=== PATIENT | male | born 1945 | race Caucasian/White ===

== ENCOUNTER 2018-03-26 14:11 | Emergency (ER) | payer MEDICARE, OTHER ==
[~2018-03-26] VITALS: Ht 172.7 cm; Wt 93.0 kg
[2018-03-26] MEDS ORDERED: TR025C15 TP (14:36)
[2018-03-26] MEDS ORDERED: LAMO100T PO (14:36)
[2018-03-26] MEDS ORDERED: ASPI-586 PO (14:36)
[2018-03-26] MEDS ORDERED: OXYB10TA PO (14:36)
[2018-03-26] MEDS ORDERED: LISI10TA2 PO (14:36)
--- NOTE | 2018-03-26 15:04 | Diagnostic Imaging Report ---
PATIENT HISTORY: Left knee pain and swelling after fall. TECHNIQUE: Three views of the left knee. COMPARISON: None. FINDINGS: No acute fracture or dislocation is seen in the left knee. There are mild tricompartmental degenerative changes. A moderate left knee joint effusion is present. IMPRESSION: Mild tricompartmental degenerative changes in the left knee with a moderate left knee joint effusion. No acute fracture is seen. Dictated by: Dictated on workstation # [id number]
[2018-03-26] MEDS ORDERED: BUPIVACAINE 0.5% 30 ML (SENSORCAINE) VIAL INJ ONE (15:15)
[2018-03-26] MEDS ORDERED: DEXAMETHASONE 10 MG/ML (DECADRON) 1 ML VIAL INJ ONE (15:15)
--- NOTE | 2018-03-26 16:19 | Diagnostic Imaging Report ---
Procedure: US left lower extremity venous. Technique: Multiple real-time grayscale images were obtained over the left lower extremity in various projections. Additional duplex Doppler and color Doppler images were also obtained. Indication: Left knee pain and swelling. Comparison: None. Technique: The left lower extremity deep venous system was interrogated from the common femoral vein through the popliteal vein. These images were assessed for grayscale appearance, color and spectral Doppler blood flow, compression, and augmentation. Findings: There is no evidence of intraluminal filling defect. Normal compression and augmentation is noted throughout. Soft tissues are unremarkable. Impression: No sonographic evidence of deep venous thrombosis in the left lower extremity. Dictated by: Dictated on workstation # [id number]
--- NOTE | 2018-03-26 16:37 | ED Lower Extremity ---
General Chief Complaint: Lower Extremity Stated Complaint: L KNEE SWELLING Nursing Triage Note: pt presents to ed with complaints of l knee pain since last tuesday after being down. pt reports l knee swelling as well. Nursing Sepsis Screen: No Definite Risk Source: patient Exam Limitations: no limitations History of Present Illness Date Seen by Provider: Mar 26, 2018 Time Seen by Provider: 14:35 Initial Comments This 73-year-old gentleman presents to the emergency room with complaints of pain and swelling in the left knee as well as pain in the left calf that started in March 22 and has been gradually worsening since onset. He is not taking any medications for the pain. He states the pain worsened after working in his 's flower bed. He denies any injury or any prior problems with this knee. He also notes that his varicose veins in that leg have become much more dilated over the past few days. He denies any fever or other problems. Allergies and Home Medications Allergies Coded Allergies: No Known Drug Allergies (Unverified , 03/26/18) Home Medications Lamotrigine 100 Mg Tablet, 100 MG PO BID, (Reported) Lisinopril 10 Mg Tablet, 10 MG PO DAILY, (Reported) Patient Home Medication List Home Medication List Reviewed: Yes Constitutional: no symptoms reported EENTM: no symptoms reported Respiratory: no symptoms reported Cardiovascular: no symptoms reported Gastrointestinal: no symptoms reported Genitourinary: no symptoms reported Musculoskeletal: see HPI Skin: no symptoms reported Psychiatric/Neurological: No Symptoms Reported Past Oixdokh-Yeubhj-Xhnrsr Hx Patient Social History Alcohol Use: Denies Use Recreational Drug Use: No Smoking Status: Former Smoker Former Smoker, Quit: Mar 30, 1976 Recent Foreign Travel: No Contact w/Someone Who Travel: No Recent Infectious Disease Expo: No Recent Hopitalizations: No Physical Abuse: No Sexual Abuse: No Mistreated: No Fear: No Seasonal Allergies Seasonal Allergies: No Past Medical History Surgeries: Yes (fistula repair) Appendectomy, Tonsillectomy Respiratory: No Cardiac: Yes Hypertension Neurological: Yes Seizure Disorder Genitourinary: Yes Prostate Problems Gastrointestinal: No Musculoskeletal: No Endocrine: No HEENT: No Cancer: No Did You Recieve Any Treatments: No Psychosocial: No Nursing Suicide Risk Score: 0 Physical Exam Vital Signs Vital Signs - First Documented 03/26/18 14:24 Temp 98.2 Pulse 80 Resp 18 B/P (MAP) 148/76 (100) Pulse Ox 96 Capillary Refill : Less Than 3 Seconds General Appearance: WD/WN, no apparent distress Cardiovascular: regular rate, rhythm Respiratory: normal breath sounds, no respiratory distress Legs: right leg non-tender, right leg normal inspection, right leg normal range of motion; bilateral leg no evidence of injury; left leg soft tissue tenderness, left leg swelling, left leg other (positive Grzegorz) Knees: right knee non-tender, right knee normal inspection, right knee normal range of motion; bilateral knee no evidence of injury; left knee joint effusion , left knee pain, left knee soft tissue tenderness, left knee swelling Ankles: bilateral ankle non-tender, bilateral ankle normal inspection, bilateral ankle normal range of motion, bilateral ankle no evidence of injury Feet: bilateral foot normal inspection Neurologic/Tendon: normal sensation, normal motor functions Neurologic/Psychiatric: gl accountant II-XII nml as tested, no motor/sensory deficits, alert, normal mood/affect, oriented x 3 Skin: normal color, warm/dry Procedures/Interventions Progress Informed consent was verbally obtained from the patient for joint aspiration and injection of the left knee. Knee was marked and cleaned with alcohol wipes. Local anesthesia was performed by injection of 1-2 mL of lidocaine beneath the skin and in the subcutaneous tissue. The knee was then prepped with Betadine. Under sterile technique synovial fluid was aspirated from a superior lateral approach using an 18-gauge needle. 70 mL of clear yellow synovial fluid was aspirated. Fluid was sent to the lab for crystal analysis. The same needle was left in place and a mixture of Decadron 8 mg and 2 mL Marcaine 0.5 percent was injected through the same needle. Patient tolerated the procedure well and had nearly immediate relief of symptoms. Progress/Results/Core Measures Results/Orders Lab Results Laboratory Tests Test 03/26/18 15:49 Range/Units Body Fluid Crystals NOT SEEN My Orders Orders - DIANA ROBERTS MD Knee, Left, 3 Views (03/26/18 14:43) Us Venous Lower Ext Lt (03/26/18 14:43) Dexamethasone Injection (Decadron Inject (03/26/18 15:15) Bupivacaine 0.5% Injection (Sensorcaine (03/26/18 15:15) Crystals,Body Fluid (03/26/18 15:50) Crystals,Body Fluid (03/26/18 16:11) Medications Given in ED Current Medications Medications Dose Ordered Sig/Delvin Route Start Time Stop Time Status Last Admin Dose Admin Bupivacaine HCl 30 ml ONCE ONCE INJ 03/26/18 15:15 03/26/18 15:22 DC 03/26/18 15:45 30 ML Dexamethasone Sodium Phosphate 8 mg ONCE ONCE INJ 03/26/18 15:15 03/26/18 15:22 DC 03/26/18 15:45 8 MG Vital Signs/I&O 03/26/18 14:24 Temp 98.2 Pulse 80 Resp 18 B/P (MAP) 148/76 (100) Pulse Ox 96 Blood Pressure Mean: 100 Progress Progress Note : Progress Note Patient had a significant joint effusion of the left knee. There was no heat or erythema to suggest infection or inflammation. The involved area was tender to touch and range of motion was limited secondary to pain. Ultrasound was negative for DVT. Risks and benefits of joint aspiration and injection were discussed with the patient which included risks of pain, bleeding, and infection. Benefits suggested were immediate and possibly prolonged improvement of pain as well as aspiration of fluid causing pressure. Patient requested the aspiration and injection which was performed successfully using sterile technique. See procedure note. Patient's pain was much improved as well as range of motion at the time of discharge. X-ray demonstrated mild arthritic changes. Diagnostic Imaging Diagonstic Imaging: Xray Plain Films/CT/US/NM/MRI: knee Comments X-ray viewed by me and report reviewed. See report below: NAME: JANAK LUCAS [facility] REC#: [id number] PT STATUS: REG ER : 1945 PHYSICIAN: DIANA ROBERTS MD ADMIT DATE: 03/26/18/ER Signed Date of Exam: 03/26/18 KNEE, LEFT, 3 VIEWS PATIENT HISTORY: Left knee pain and swelling after fall. TECHNIQUE: Three views of the left knee. COMPARISON: None. FINDINGS: No acute fracture or dislocation is seen in the left knee. There are mild tricompartmental degenerative changes. A moderate left knee joint effusion is present. IMPRESSION: Mild tricompartmental degenerative changes in the left knee with a moderate left knee joint effusion. No acute fracture is seen. Dictated by: Dictated on workstation # [id number] Dict: 03/26/18 1502 Trans: 03/26/18 1511 Interpreted by: ЮЛИЯ MAYNARD MD Electronically signed by: ЮЛИЯ MAYNARD MD 03/26/18 1511 Diagonstic Imaging: Ultrasound Plain Films/CT/US/NM/MRI: leg Comments Venous Doppler of the left leg report reviewed. See report below: NAME: JANAK LUCAS [facility] REC#: [id number] PT STATUS: REG ER : 1945 PHYSICIAN: DIANA ROBERTS MD ADMIT DATE: 03/26/18/ER Signed Date of Exam: 03/26/18 US VENOUS LOWER EXT LT Procedure: US left lower extremity venous. Technique: Multiple real-time grayscale images were obtained over the left lower extremity in various projections. Additional duplex Doppler and color Doppler images were also obtained. Indication: Left knee pain and swelling. Comparison: None. Technique: The left lower extremity deep venous system was interrogated from the common femoral vein through the popliteal vein. These images were assessed for grayscale appearance, color and spectral Doppler blood flow, compression, and augmentation. Findings: There is no evidence of intraluminal filling defect. Normal compression and augmentation is noted throughout. Soft tissues are unremarkable. Impression: No sonographic evidence of deep venous thrombosis in the left lower extremity. Dictated by: Dictated on workstation # [id number] Dict: 03/26/18 1615 Trans: 03/26/18 1639 Interpreted by: DANE WETZEL MD Electronically signed by: DANE WETZEL MD 03/26/18 1639 Departure Impression Primary Impression: Arthritis of left knee Additional Impression: Effusion, left knee Disposition: 01 HOME, SELF-CARE Condition: Improved Departure-Patient Inst. Decision time for Depature: 16:00 Referrals: JOSUE VALENCIA MD (PCP/Family) Primary Care Physician Patient Instructions: Osteoarthritis Add. Discharge Instructions: For pain take ibuprofen up to 600 mg every 6 hours as needed. You may also take Tylenol (acetaminophen) (up to 1000 mg every 6 hours as needed. Elevation and icing in 20 minute intervals may also help with pain and swelling. You may try compressive wrappings such as an Dandre bandage or soft knee brace. If symptoms return, follow-up with Dr. Valencia. Return to care if you develop heat, redness, or more severe pain of the knee or fevers over 100. The fluid from your knee was sent to the lab to evaluate for crystals. Please follow-up with Dr. Valencia for the results of this test. All discharge instructions reviewed with patient and/or family. Voiced understanding. DIANA ROBERTS MD Mar 26, 2018 16:37
[2018-03-26 16:43] VITALS: BP 142/81
== END 2018-03-26 16:43 | disposition home or self-care (01) ==
LOC: ER 14:13
DX: M17.12 Unilateral primary osteoarthritis, left knee (principal); I10 Essential (primary) hypertension; G40.909 Epilepsy, unspecified, not intractable, without status epilepticus; Z87.891 Personal history of nicotine dependence; Z90.89 Acquired absence of other organs
CPT/HCPCS: 20610; 73562; 89060; 96372

== ENCOUNTER 2018-11-28 14:24 | Outpatient (CLI) | payer MEDICARE ==
[~2018-11-28] VITALS: Ht 172.7 cm; Wt 95.3 kg
== END 2018-11-28 14:50 | disposition home or self-care (01) ==
LOC: PREOP 14:24
PROVIDERS: ATTEND Surgery
DX: Z01.818 Encounter for other preprocedural examination (principal)

== ENCOUNTER 2018-12-04 07:20 | Day surgery (SDC) | payer MEDICARE ==
[~2018-12-04] VITALS: Ht 172.7 cm; Wt 95.3 kg
[~2018-12-04 07:20] MED LIST: ASPI-586 PO; LAMO100T PO; LISI10TA2 PO; OMEG100032 PO; OXYB10TA PO; TR025C15 TP
[2018-12-04] MEDS ORDERED: NS IV 500 ML 500 ML IV PRN (07:33)
[2018-12-04] MEDS ORDERED: NS IV 500 ML 500 ML ONE (07:40)
[2018-12-04] MEDS ORDERED: MIDAZOLAM 2 MG/2 ML (VERSED) VIAL IVP ONE (07:45)
[2018-12-04] MEDS ORDERED: fentaNYL INJECTION 100 MCG/2 ML AMP IVP ONE (07:45)
[2018-12-04 07:52] VITALS: BP 157/83
[2018-12-04] MEDS ORDERED: fentaNYL INJECTION 100 MCG/2 ML AMP ONE (08:29)
[2018-12-04] MEDS ORDERED: MIDAZOLAM 2 MG/2 ML (VERSED) VIAL ONE ×4 (08:29→08:30)
--- NOTE | 2018-12-04 09:18 | History & Physicial ---
History of Present Illness History of Present Illness Reason for visit/HPI to undergo screening colonoscopy. He reports a family history of polyps in his father. Date of Admission 12/04/28 Date Seen by a Provider: Dec 04, 2018 Time Seen by a Provider: 08:15 I consulted on this patient on 12/04/18 09:17 Attending Physician Shreya Meredith MD Admitting Physician Roger Ca MD Consult Allergies and Home Medications Allergies Coded Allergies: Sulfa (Sulfonamide Antibiotics) (Verified Allergy, Unknown, 11/28/18) Home Medications Aspirin 81 Mg Tablet.dr, 81 MG PO DAILY, (Reported) Lamotrigine 100 Mg Tablet, 100 MG PO BID, (Reported) Lisinopril 10 Mg Tablet, 10 MG PO DAILY, (Reported) [place]-3/Dha/Epa/Fish Oil 1,000 Mg Capsule, 1,000 MG PO DAILY, (Reported) Oxybutynin Chloride 10 Mg Tab.er.24, 10 MG PO DAILY, (Reported) Patient Home Medication List Home Medication List Reviewed: Yes Past Jyfuajt-Sxbtlv-Wuoynn Hx Patient Social History Marrital Status: Employed/Student: retired Alcohol Use: Denies Use Recreational Drug Use: No Smoking Status: Former Smoker Former Smoker, Quit: Mar 30, 1976 Type Used: Cigarettes 2nd Hand Smoke Exposure: No Recent Foreign Travel: No Contact w/other who traveled: No Recent Hopitalizations: No Recent Infectious Disease Expo: No Immunizations Up To Date Tetanus Booster (TDap): Unknown Date of Pneumonia Vaccine: Jul 10, 2018 Date of Influenza Vaccine: Jul 10, 2018 Seasonal Allergies Seasonal Allergies: Yes Surgeries Yes (fistula repair) Appendectomy, Tonsillectomy Respiratory No Currently Using CPAP: No Currently Using BIPAP: No Cardiovascular Yes Hypertension Neurological Yes (had one seizure about 15 yrs ago no lasting issues) Seizure Disorder Reproductive System Sexually Transmitted Disease: No HIV/AIDS: No Genitourinary Yes Prostate Problems Gastrointestinal No Musculoskeletal No Endocrine History of Endocrine Disorders: No HEENT History of HEENT Disorders: No Loss of Vision: Bilateral Hearing Impairment: Denies Cancer Yes Skin Did You Recieve Any Treatments: No Psychosocial History of Psychiatric Problem: No Integumentary History of Skin or Integumenta: No Blood Transfusions History of Blood Disorders: No Review of Systems Constitutional: no symptoms reported EENTM: no symptoms reported Respiratory: no symptoms reported Cardiovascular: no symptoms reported Gastrointestinal: no symptoms reported Genitourinary: no symptoms reported Musculoskeletal: no symptoms reported Skin: no symptoms reported Psychiatric/Neurological: No Symptoms Reported Physical Exam Vital Signs Vital Signs - First Documented 12/04/18 07:52 Temp 98.2 Pulse 74 Resp 18 B/P (MAP) 157/83 (107) Pulse Ox 96 O2 Delivery Room Air Capillary Refill : Height, Weight, BMI Height: 5'8.00" Weight: 210lbs. 0.0oz. 95.916064kp; 31.9 BMI Method:Stated General Appearance: No Apparent Distress Neck: Normal Inspection Respiratory: Lungs Clear Cardiovascular: Regular Rate, Rhythm Gastrointestinal: Non Tender, Soft Rectal: Deferred Extremity: Normal Inspection Neurologic/Psychiatric: Alert, Oriented x3 Skin: Warm/Dry Assessment/Plan Assessment and Plan gentleman to undergo screening colonoscopy. Discussed in detail. Admission Diagnosis Admission Status: Other (Outpt Proc) SHREYA MEREDITH MD Dec 04, 2018 09:18
--- NOTE | 2018-12-04 09:19 | Conscious Sedation/ASA ---
Conscious Sedation Pre-Proced Time 08:16 ASA Score 2 For ASA 3 and 4: Consider anesthesia and medical clearance. Also, for patients with a history of failed moderate sedation consider anesthesia. Airway Lungs Heart ASA score ASA 1: a normal healthy patient ASA 2: a patient with a mild systemic disease (mid diabetes, controlled hypertension, obesity ASA 3: a patient with a severe systemic disease that limits activity (angina , COPD, prior Myocardial infarction) ASA 4: a patient with an incapacitating disease that is a constant threat to life (CHF, renal failure) ASA 5: a moribund patient not expected to survive 24 hrs. (ruptured aneurysm) ASA 6: a declared brain- patient whose organs are being harvested. For emergent operations, add the letter E after the classification Mallampati Classification Grade 1 Sedation Plan Discussed options with patient/fam The patient is an appropriate candidate to undergo the planned procedure, sedation, and anesthesia. The patient immediately re-assessed prior to indication. SHREYA MEREDITH MD Dec 04, 2018 09:19
--- NOTE | 2018-12-04 09:21 | Endo Procedure Record ---
Endo Procedure Report Date of Procedure Last Colonoscopy: Yes Dec 04, 2018 Surgeon (s) SHREYA MEREDITH MD Post Procedure/Op Diagnosis sigmoid diverticulosis Procedure Performed colonoscopy to cecum Description of Procedure Anesthesia Type: Conscious Sedation Specimen(s) collected/removed none Description of the Procedure indication for the procedure: This gentleman came in for screening colonoscopy. He reported a family history of polyps in his father. Informed consent was obtained after reviewing the procedure in detail. Description of the procedure: He was placed in left lateral decubitus position and his vital signs were monitored. Conscious sedation was achieved using Versed and protected. Digital rectal examination was unremarkable. The colonoscope was then introduced in the rectum and advanced all the way up to the cecum. The scope was then withdrawn slowly and the mucosa examined in a systematic fashion. Findings: Sigmoid diverticulosis. No polyps were found. He tolerated the procedure well and was taken back to the nursing area in a stable condition. Impression: Screening colonoscopy. No polyps. Incidental diverticulosis. Family history of polyps. Recommend repeating in 5 years. Copy Copies To 1: JOSUE VALENCIA MD, XAVIER M MD Dec 04, 2018 09:21
--- NOTE | 2018-12-04 09:22 | Discharge Inst-Simple/Standard ---
Discharge Inst-Standard Discharge Medications New, Converted or Re-Newed RX: Other Patient Instructions/Follow Up Plan of Care/Instructions/FU: Repeat colonoscopy in 5 years Activity as Tolerated: Yes Discharge Diet: No Restrictions SHREYA MEREDITH MD Dec 04, 2018 09:22
[2018-12-04 09:35] VITALS: BP 105/57
[2018-12-04 10:00] VITALS: BP 140/81
[2018-12-04 10:57] VITALS: BP 140/81
== END 2018-12-04 10:20 | disposition home or self-care (01) ==
LOC: ENDO 07:20
PROVIDERS: ATTEND Surgery
DX: Z12.11 Encounter for screening for malignant neoplasm of colon (principal); Z80.0 Family history of malignant neoplasm of digestive organs; K57.30 Diverticulosis of large intestine without perforation or abscess without bleeding; I10 Essential (primary) hypertension; Z88.2 Allergy status to sulfonamides; Z79.82 Long term (current) use of aspirin; Z79.899 Other long term (current) drug therapy; Z87.891 Personal history of nicotine dependence; Z85.828 Personal history of other malignant neoplasm of skin

== ENCOUNTER → 2020-03-20 | Outpatient (CLI) | payer MEDICARE ==
[~2020-03-20] MED LIST changes: -LAMO100T PO; +LAMO100T5 PO; -OXYB10TA PO; +OXYB10TA29 PO
--- NOTE | 2020-03-20 14:18 | Diagnostic Imaging Report ---
PROCEDURE: CT urinary tract, rule out kidney stone. TECHNIQUE: Multiple contiguous axial images were obtained through the abdomen and pelvis without the use of intravenous contrast. Auto Exposure Controls were utilized during the CT exam to meet ALARA standards for radiation dose reduction. INDICATION: Left flank pain since yesterday. CORRELATION STUDY: None. FINDINGS: LOWER THORAX: Minimal areas of dependent atelectasis. 7 mm nodule in the lateral left lower lobe. Heart size appearing normal. LIVER: Unremarkable. GALLBLADDER: Present and unremarkable. No bile duct dilatation. SPLEEN: Unremarkable. PANCREAS: Unremarkable. ADRENAL GLANDS: Unremarkable. KIDNEYS: Normal configuration. No calcification or obstruction. ABDOMINAL AORTA: Mild aortic and iliac artery wall calcification. Nonaneurysmal. GASTROINTESTINAL TRACT: Small amount of retained gastric contents. No small bowel obstruction. The cecum is near midline. An appendix is not clearly identified, but there is no focal pericecal inflammatory change. Colonic diverticulosis, particularly of the descending and sigmoid colon. Moderate severity of fecal retention. URINARY BLADDER: Unremarkable. REPRODUCTIVE: Prostate gland is mildly prominent with multiple calcifications. OSSEOUS STRUCTURES: Mildly advanced degenerative changes are present. Mild loss of height of the superior T11 endplate of approximately one-third vertebral body height. Multilevel degenerative changes with disc space narrowing. OTHER: None. IMPRESSION: 1. Negative for nephroureterolithiasis or obstructive uropathy. 2. Rather prominent in severity distal colonic diverticulosis without definitive evidence for acute diverticulitis. Nonvisualization of the appendix. 3. Small left lower lobe pulmonary nodule. Follow-up assessment is recommended. Dictated by: Dictated on workstation # [id number]
== END ==
LOC: RAD 12:55
PROVIDERS: ATTEND Family Medicine
DX: K57.30 Diverticulosis of large intestine without perforation or abscess without bleeding (principal); N39.0 Urinary tract infection, site not specified; R91.1 Solitary pulmonary nodule
CPT/HCPCS: 74176

== ENCOUNTER → 2021-06-23 | Outpatient (CLI) | payer MEDICARE ==
[~2021-06-23] MED LIST changes: -LISI10TA2 PO; +LISI10TA25 PO
--- NOTE | 2021-06-23 10:39 | Diagnostic Imaging Report ---
INDICATION: Knee pain with no known injury or trauma. Increasing severity of pain. TECHNIQUE: 4 views of the left knee CORRELATION STUDY: None FINDINGS: Marked joint space narrowing medial compartment with nearly pobr-uo-mimp present. Mild marginal osteophyte formation both medially and laterally. There is narrowing at the patellofemoral compartment, spur formation superior and inferior pole of patella. No acute bony abnormality. Prominent suprapatellar joint effusion. Mild vascular calcification. IMPRESSION: 1. Negative for acute bony abnormality of the knee. Advanced multicompartment changes left knee. Suprapatellar joint effusion. Dictated by: Dictated on workstation # [id number]
== END ==
LOC: ORTHO 09:41
PROVIDERS: ATTEND Orthopaedic Surgery
DX: M25.562 Pain in left knee (principal); M25.462 Effusion, left knee
CPT/HCPCS: 20610; 73564; G0463

== ENCOUNTER → 2021-07-21 | Outpatient (CLI) | payer MEDICARE ==
--- NOTE | 2021-07-21 13:46 | Diagnostic Imaging Report ---
INDICATION: Right shoulder pain. TECHNIQUE: Three views of the right shoulder. CORRELATION STUDY: None. FINDINGS: No acute fracture or dislocation. Prominent hypertrophic changes of the acromioclavicular joint with mild sclerosis and osteophyte formation. Slightly high-riding humeral head noted. Glenohumeral alignment is otherwise anatomic. Visualized right lung field and ribs are unremarkable. No abnormal soft tissue calcification. IMPRESSION: 1. Negative for acute bony abnormality about the shoulder. Advanced degenerative changes of the right shoulder. High-riding humeral head can be associated with underlying rotator cuff pathology. Dictated by: Dictated on workstation # [id number]
== END ==
LOC: ORTHO 09:01
PROVIDERS: ATTEND Orthopaedic Surgery
DX: M19.011 Primary osteoarthritis, right shoulder (principal)
CPT/HCPCS: 73030; G0463; 99213

== ENCOUNTER 2021-08-31 05:39 | Outpatient (CLI) | payer MEDICARE ==
[~2021-08-31] VITALS: Ht 172.7 cm; Wt 92.7 kg
[2021-08-31] MEDS ORDERED: ANTI1CAP5 PO (09:40)
[2021-08-31] MEDS ORDERED: SAW PALMETTO PO (09:40)
== END 2021-08-31 09:53 | disposition home or self-care (01) ==
LOC: PREOP 05:39
PROVIDERS: ATTEND Urology
DX: Z01.818 Encounter for other preprocedural examination (principal)

== ENCOUNTER 2021-09-01 07:16 | Day surgery (SDC) | payer MEDICARE ==
[2021-09-01] VITALS (12 sets, daily range): BP systolic 107–195; BP diastolic 61–100
[~2021-09-01] VITALS: Ht 172.7 cm; Wt 92.7 kg
--- NOTE | 2021-09-01 07:07 | Progress Note-Post Operative ---
Post-Operative Progess Note Surgeon (s)/Mechanical Sound Technician (s) Surgeon ELIANA MAKI MD Mechanical Sound Technician: NONE Pre-Operative Diagnosis BPH Post-Operative Diagnosis SAME Procedure & Operative Findings Date of Procedure 09/01/21 Procedure Performed/Findings UROLIFT IMPLANTS Anesthesia Type GENERAL Estimated Blood Loss Estimated blood loss (mL): LSS THAN 50CC Specimens/Packing Specimens Removed NONE Packing: NONE ELIANA MAKI MD Sep 01, 2021 07:07
--- NOTE | 2021-09-01 07:07 | Progress Note-Pre Operative ---
Pre-Operative Progress Note H&P Reviewed The H&P was reviewed, patient examined and no changes noted. Date Seen by Provider: Sep 01, 2021 Time Seen by Provider: 08:00 Date H&P Reviewed: Sep 01, 2021 Time H&P Reviewed: 08:00 Pre-Operative Diagnosis: BPH ELIANA MAKI MD Sep 01, 2021 07:07
--- NOTE | 2021-09-01 07:09 | Discharge Inst-Urology ---
Discharge Inst-Urology Reconcile Patient Problems Problems Reviewed?: Yes Final Diagnosis BPH Patient Instructions/Follow Up Plan/Assessment/Instructions Please make appointment to been seen in office in 2 weeks. Rest till then Please call me in 2 hours to tell me status of mcdaniel and urine color to decide on mcdaniel Keep bowels soft and moving Increase oral fluids for 48 hours and then as needed. Diet as tolerated. If questions or concerns contact your physician Or seek help at emergency department. ELIANA MAKI MD Sep 01, 2021 07:09
[~2021-09-01 07:16] MED LIST changes: +ANTI1CAP5 PO; +SAW PALMETTO PO; +cefTRIAXone 1 GM PRE-MIX 50 ML IV ONE
[2021-09-01] MEDS: LACTATED RINGERS 1,000 ML IV PRN ×2 (07:40→10:04)
[2021-09-01] MEDS ORDERED: proPOfol 200 MG/20 ML (DIPRIVAN) VIAL IV ONE (08:18)
[2021-09-01] MEDS ORDERED: LIDOCAINE PF 2% 5 ML (XYLOCAINE) VIAL ONE (08:18)
[2021-09-01] MEDS ORDERED: fentaNYL INJ 100 MCG/2 ML AMP ONE (08:18)
[2021-09-01] MEDS ORDERED: ONDANSETRON 4 MG/2 ML (SDV) Z0FRAN ONE (08:18)
[2021-09-01] MEDS ORDERED: SEVOFLURANE (ULTANE) 15 ML INHAL SOLN ONE (09:48)
[2021-09-01] MEDS ORDERED: HYDROmorphone 2 MG/ML VIAL (DILAUDID) IV ONE (10:00)
[2021-09-01] MEDS ORDERED: ONDANSETRON 4 MG/2 ML (SDV) Z0FRAN IVP PRN (10:00)
--- NOTE | 2021-09-01 10:57 | Anesthesia-General Post-Op ---
General Patient Condition Mental Status/LOC: Same as Preop Cardiovascular: Satisfactory Nausea/Vomiting: Absent Respiratory: Satisfactory Pain: Controlled Complications: Absent Post Op Complications Complications None Follow Up Care/Instructions Patient Instructions None needed. Anesthesia/Patient Condition Patient Condition Patient is doing well, no complaints, stable vital signs, no apparent adverse anesthesia problems. No complications reported per nursing. [place] [facility] [place] PHIL SANDERS CRNA Sep 01, 2021 10:57
--- NOTE | 2021-09-01 16:24 | OPERATIVE REPORT ---
DATE OF SERVICE: 09/01/2021 PREOPERATIVE DIAGNOSIS: Benign prostatic hypertrophy. POSTOPERATIVE DIAGNOSIS: Benign prostatic hypertrophy. OPERATION PERFORMED: UroLift implants. SURGEON: Gordon Maki MD ANESTHESIA: General. COMPLICATIONS: None. DESCRIPTION OF PROCEDURE: Under satisfactory general anesthesia, the patient in lithotomy position, genitalia were prepped and draped in the usual sterile fashion. The special UroLift scope was introduced in the bladder. Again, visualized the enlarged lateral lobes meeting in the midline. I inserted the UroLift device and inserted four implants, two on each side, 1.5 cm from the bladder neck and 1 cm proximal to the field. There was good opening of the channel. There was minimal oozing. I removed the scope and the implant. I decided to leave a catheter to see how he does over the next 2 hours to decide if we send him with the catheter not, so I inserted a 16-Macedonian Burkett catheter, the return of which was pink. The patient tolerated the procedure and anesthesia well and was sent to recovery room in stable condition. ESTIMATED BLOOD LOSS: Less than 50 mL. Job ID: [id number] DocumentID: [id number] Dictated Date: 09/01/2021 09:56:16 Family Educator Date: 09/01/2021 16:23:32 Dictated By: GORDON MAKI MD
== END 2021-09-01 12:45 | disposition home or self-care (01) ==
LOC: SDC 07:16
PROVIDERS: ATTEND Urology
DX: N40.0 Benign prostatic hyperplasia without lower urinary tract symptoms (principal); I10 Essential (primary) hypertension; Z79.899 Other long term (current) drug therapy
CPT/HCPCS: 52441; 52442 ×3; 87081; L8699

== ENCOUNTER → 2022-06-10 | Outpatient (CLI) | payer MEDICARE ==
[~2022-06-10] MED LIST changes: -cefTRIAXone 1 GM PRE-MIX 50 ML IV ONE
== END ==
LOC: CARD 07:42
PROVIDERS: ATTEND Internal Medicine Cardiovascular Disease
DX: I25.10 Atherosclerotic heart disease of native coronary artery without angina pectoris (principal); I11.9 Hypertensive heart disease without heart failure; I34.0 Nonrheumatic mitral (valve) insufficiency
CPT/HCPCS: 93306

== ENCOUNTER → 2022-07-05 | Outpatient (CLI) | payer MEDICARE ==
[~2022-07-05] VITALS: Ht 172 cm; Wt 87.0 kg
[~2022-07-05] MED LIST changes: +CATHETER FLUSH 10 ML SYR IVP PRN; +REGADENOSON 0.4 MG/5 ML SYR (LEXISCAN) IV ONE
[2022-07-05 09:58] VITALS: BP 180/78
--- NOTE | 2022-07-05 11:49 | Cardiology Stress Test Report ---
Stress Test Report Date of Procedure/Referring: Date of Procedure: Jul 05, 2022 PCP Roger Ca MD Admitting Physician Admitting Physician: Attending Physician: Abdullahi Cárdenas MD Indications: HTN Baseline Heart Rate: 59 Baseline Blood Pressure: Blood Pressure Systolic: 180 Blood Pressure Diastolic: 78 Baseline Vitals Vital Signs Date Time Temp Pulse Resp B/P (MAP) Pulse Ox O2 Delivery O2 Flow Rate FiO2 07/05/22 09:58 59 180/78 (112) Baseline EKG: Baseline EKG: NSR Summary After explaining the procedure to the patient, he signed a consent and then brought to the stress nuclear laboratory. Patient received 0.4 mg Lexiscan for stress test, ECG, heart rate and blood pressure were monitored continuously. Resting and stress dose of radio tracer were injected, imaging was acquired and reviewed in short axis, horizontal long axis and vertical long axis views. TID: 0.99 SSS: 0 SDS: 0 EF: 63 1. Patient was unable to exercise beyond 3 minutes and 30 seconds on standard Scott protocol, test was terminated and converted to Lexiscan Myoview stress test 2. Patient tolerated Lexiscan well 3. No significant ischemia or infarction on SPECT images 4. Normal left ventricular size, ejection fraction 63% Copy Copies To 1: [facility] [place] ABDULLAHI CÁRDENAS MD Jul 05, 2022 11:49
== END ==
LOC: CARD 07:45
PROVIDERS: ATTEND Internal Medicine Cardiovascular Disease
DX: I10 Essential (primary) hypertension (principal); I25.10 Atherosclerotic heart disease of native coronary artery without angina pectoris
CPT/HCPCS: 78452; 93017; A9502